=== PATIENT | female | born 1970 | race Caucasian/White ===

== ENCOUNTER 2017-05-11 04:22 | Emergency (ER) | payer BC ==
--- NOTE | 2017-05-11 04:37 | DR.GENAD ---
HPI - PCP Primary Care Physician: NFD - HPI Comment HPI Comment: HISTORY MIGRANE HEADACHE. EPISODRE STATED SEVERA HOURS AGO AND GOT WORSE TONIGHT. NON PRESRIPTION MEDICATIONS ARE NOT RELIEVING PATIENTS PAIN. - Complaint/Symptoms Chief Complaint Doctors Comments: HEADACHE SEVERAL HOURS WITH NAUSEA AND PHOTOPHOBIA. Chief Complaint:: Head has been hurting since 11 PM on 05/10. Patient states that she has vomied 3 times. Self Treatment fo Chief Complaint: Goody's Powder- in evening. Excederin around 14:30. - Nurses notes reviewed Nurses Notes Review: Yes - Source History Provided: Patient - Mode of Arrival Mode of Arrival: Ambulatory - Timing Onset of Chief Complaint: 05/10/17 Came on: Suddenly - Duration Duration: Constant Duration: Days - Severity Severity: Moderate PMH - PMH Past Medical History: Yes Past Medical History Comment: Migraines Past Surgical History: Yes Surgical History: Hysterectomy, Tonsillectomy Past Surgical History Comment: D&C x 3 - Family History History of Family Medical Conditions: No - Social History Alcohol Use: None Do you use any recreational Drugs:: No - infectious screening Have you traveled outside the country in the last 6 months?: No ROS - Review of Systems Constitutional: No Symptoms Reported. negative: Chills, Fever Eyes: Photophobia ENTM: No Symptoms Reported Respiratoy: No Symptoms Reported Cardiovascular: No Symptoms Reported Gastrointestinal/Abdominal: No Symptoms Reported, Nausea Genitourinary: No Symptoms Reported Neurological: Headache Musculoskeletal: No Symptoms Reported Integumentary: No Symptoms Reported Hematologic/Lymphatic: No Symptoms Reported Endocrine: No Symptoms Reported Psychiatric: No Symptoms Reported All Other Systems: Reviewed and Negative PE - Vital Signs Vitals: Temperature 98.9 F Pulse Rate [Left Radial] 96 Pulse Rate 115 Respiratory Rate 18 Blood Pressure [Right Arm] 140/80 Blood Pressure 169/83 O2 Sat by Pulse Oximetry 100 - General Limitations: No Limitations General Appearance: Alert - Head Head Exam: Normal Inspection - Eyes Eye exam: PERRL, EOMI, Other (PHOTOPHOBIA.). negative: Scleral Icterus, Conjunctival Injection - ENT ENT Exam: Normal External Ear Exam External Ear Exam: Normal External Inspection TM/Canal Exam: Bilateral Normal Nose Exam: Normal Nose Exam Mouth Exam: Normal Inspection Throat Exam: Normal Inspection - Neck Neck Exam: Trachea Midline - Chest Chest Inspection: Symmetric Chest Wall Rise - Respiratory Respiratory Exam: Normal Lung Sounds Bilat Respiratory Exam: Bilateral Clear to Auscultation - Cardiovascular Cardiovascular Exam: Regular Rate, Normal Rhythm, Normal Heart Sounds - Abdominal Exam Abdominal Exam: Normal Bowel Sounds, Soft. negative: Tenderness - Extremities Extremities Exam: Normal Inspection - Back Back Exam: Normal Inspection - Neurologic Neurological Exam: Alert, Oriented X3, CN II-XII Intact, Normal Gait, Reflexes Normal. negative: Motor Sensory Deficit - Psychiatric Psychiatric Exam: Normal Affect, Normal Mood - Skin Skin Exam: Normal Color MDM - Additional Information Additional Information Obtained From: Family - Differential Diagnosis Differential Diagnosis: MIGRAINE HEADACHE. Course - Treatment Treatment: SEE ORDERS. IM MEDS GIVEN IN ED FOR PAIN. IMPROVE. - Reevaluation 1st: Improved - Education/Counseling Education/Counseling: Patient, Family, Education Educated On: Treatment, Diagnosis, Needs for Follow Up - Diagnosis Discharge Problem: Migraine Qualifiers: Migraine type: with aura Status migrainosus presence: without status migrainosus Intractability: intractable Qualified Code(s): G43.119 - Migraine with aura, intractable, without status migrainosus - Discharge Plan Disposition: 01 HOME, SELF-CARE Condition: Stable Prescriptions: Codeine/Butalbital/ASA/Caffein [Fiorinal/Codeine #3 [id number] mg] 1 cap PO Q8H PRN #30 cap PRN Reason: Promethazine HCl [PHENERGAN TAB 25 MG *] 25 mg PO Q6H PRN #15 tab PRN Reason: Nausea/Vomiting - Follow ups/Referrals Follow ups/Referrals: CHACE GUTIERREZ [STAFF PHYSICIAN] - 2 days NFD,None [Primary Care Provider] - 2 days - Instructions Instructions: Migraine Headache, [id number] Additional Instructions: RETURN TO ED IF WORSE.
[2017-05-11 04:41] VITALS: BMI 19.5
[2017-05-11] MEDS ORDERED: DEMEROL INJ IM ONE (04:46)
[2017-05-11] MEDS ORDERED: PHENERGAN INJ 25 MG IM ONE (04:47)
[2017-05-11] MEDS ORDERED: PHENERGAN INJ 25 MG ONE (04:49)
[2017-05-11] MEDS ORDERED: DEMEROL INJ ONE (04:49)
[2017-05-11 05:30] VITALS: BP 140/80
== END 2017-05-11 05:29 | disposition home or self-care (01) ==
LOC: ER 04:22
DX: G43.119 Migraine with aura, intractable, without status migrainosus (principal)
CPT/HCPCS: 96372; 99282; 99283; J2175; J2550